=== PATIENT | male | born 1970 | race American Indian/Alaskan Native ===

== ENCOUNTER 2018-02-19 18:41 | Emergency (ER) | payer OTHER ==
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
[2018-02-19] MEDS ORDERED: MOTRIN PO ONE ×2 (22:49→23:13)
[2018-02-20 00:03] VITALS: BP 158/84
== END 2018-02-19 23:15 | disposition home or self-care (01) ==
LOC: ED 18:41
DX: M62.830 Muscle spasm of back (principal); M79.602 Pain in left arm; R51 Headache; D16.4 Benign neoplasm of bones of skull and face; Z79.899 Other long term (current) drug therapy; V87.7XXA Person injured in collision between other specified motor vehicles (traffic), initial encounter; Y93.89 Activity, other specified; Y99.8 Other external cause status; Y92.410 Unspecified street and highway as the place of occurrence of the external cause
CPT/HCPCS: 70450; 72100; 99284